=== PATIENT | female | born 1975 | race African-American/Black ===

== ENCOUNTER 2019-01-12 21:07 | Observation (INO) ==
[2019-01-12 23:11] LABS: Basophils % 0.2 % (0.0-0.8); Eosinophils # 0.1 10*3/uL (0.0-0.87); Eosinophils % 1.2 % (0.00-10.9); Hematocrit 39.5 VOL% (35.7-47.0); Hemoglobin 12.8 GM/DL (12.0-16.0); Immature Granulocytes % 0.4 %; Immature Granulocytes Absolute 0.03 #; Lymphocytes # 2.5 10*3/uL (1.4-4.0); Lymphocytes % 30.6 % (21.3-54.2); Mean Corpuscular HGB Conc 32.4 GM/DL (32-36); Mean Corpuscular Volume 82.1 FL (87-102); Mean Platelet Volume 10.1 FL (9.6-12.0); Monocytes % 8.7 % (1.7-12.7); Neutrophils % 58.9 % (38.7-73.9); Platelet Count 346 T/CUMM (130-400); Red Blood Count 4.81 MC/CUMM (3.8-5.5); Red Cell Distribution Width 13.4 % (9.3-17.3); White Blood Count 8.3 T/CUMM (4-12)
[2019-01-12 23:12] LABS: Apearance,Urine CLEAR (Clear); Bilirubin,Urine Negative (Negative); Blood, Urine Negative (Negative); Glucose,Urine (UA) Negative (Negative); Ketones,Urine Negative (Negative); Mucus,Urine Occasional /LPF (Occasional); Nitrite,Urine Negative (Negative); Protein,Urine Negative; RBC,Urine 1 /HPF (0-4); Urine Color Yellow (Yellow); Urine Specific Gravity 1.017 (1.001-1.035); Urine Urobilinogen < 2.0 EU/DL (0.2-1.0); WBC,Urine <1 /HPF (0-6)
[2019-01-12] MEDS ORDERED: KETOROLAC 30 MG/1 ML VIAL IM STA (23:23)
[2019-01-12] MEDS ORDERED: HYDROmorphone 2 MG/1 ML VIAL IM STA (23:36)
[2019-01-12] MEDS ORDERED: ONDANSETRON 4 MG/2 ML VIAL IM STA (23:36)
[2019-01-12] MEDS ORDERED: HYDROmorphone 2 MG/1 ML VIAL ONE (23:36)
[2019-01-12] MEDS ORDERED: ONDANSETRON 4 MG/2 ML VIAL ONE (23:36)
[2019-01-12 23:59] LABS: Alanine Aminotransferase 26 U/L (13-56); Albumin 3.3 G/DL (3.4-5.0); Alkaline Phosphatase 90 U/L (45-117); Aspartate Amino Transferase 13 U/L (0-37); Bilirubin,Total < 0.39 MG/DL (0.2-1.0); Blood Urea Nitrogen 7 MG/DL (7-18); Calcium 8.2 MG/DL (8.5-10.1); Glucose 105 MG/DL (74-106); Osmolality,Calculated 274.5 MOS/KG (273-304); Total Protein 7.3 G/DL (6.4-8.3)
[2019-01-13] MEDS ORDERED: PIPERACILLIN/TAZOBACTAM 3,375 MG in SODIUM CHLORIDE 0.9% 100 ML IV STA (00:59)
[2019-01-13] MEDS ORDERED: ACETAMINOPHEN 325 MG TABLET PO PRN (01:02)
[2019-01-13] MEDS: HYDROmorphone 2 MG/1 ML VIAL IV PRN ×4 (02:12→19:37)
[2019-01-13] MEDS: LACTATED RINGERS 1,000 ML IV SCH ×2 (04:03→15:32)
[2019-01-13] MEDS: PIPERACILLIN/TAZOBACTAM 3,375 MG in SODIUM CHLORIDE 0.9% 100 ML IV SCH ×2 (08:52→17:34)
[2019-01-13] MEDS ORDERED: PANTOPRAZOLE 40 MG TABLET PO SCH (09:00)
[2019-01-13] MEDS: ONDANSETRON 4 MG/2 ML VIAL IV PRN ×2 (09:50→20:43)
[2019-01-13] MEDS ORDERED: ALBUTEROL 2.5 MG/3 ML NEB RESP TX PRN ×3 (11:28→13:00)
[2019-01-13] MEDS ORDERED: ONDANSETRON 4 MG/2 ML VIAL IV ONE (12:31)
[2019-01-13] MEDS ORDERED: traZODone 50 MG TABLET PO SCH (21:00)
[2019-01-13] MEDS ORDERED: NON-FORMULARY MEDICATION (Omeprazole 40 MG) PO SCH (21:00)
[2019-01-13] MEDS: PANTOPRAZOLE 40 MG TABLET PO SCH (21:52)
[2019-01-13] MEDS: busPIRone 10 MG TABLET PO SCH (21:54)
[2019-01-14] MEDS: PIPERACILLIN/TAZOBACTAM 3,375 MG in SODIUM CHLORIDE 0.9% 100 ML IV SCH ×2 (01:38→09:49)
[2019-01-14] MEDS: LACTATED RINGERS 1,000 ML IV SCH ×3 (01:46→14:44)
[2019-01-14 04:54] LABS: Basophils % 0.3 % (0.0-0.8); Eosinophils # 0.1 10*3/uL (0.0-0.87); Eosinophils % 1.4 % (0.00-10.9); Hematocrit 37.4 VOL% (35.7-47.0); Hemoglobin 12.2 GM/DL (12.0-16.0); Immature Granulocytes % 0.3 %; Immature Granulocytes Absolute 0.02 #; Lymphocytes # 2.6 10*3/uL (1.4-4.0); Lymphocytes % 34.6 % (21.3-54.2); Mean Corpuscular HGB Conc 32.6 GM/DL (32-36); Mean Corpuscular Volume 82.6 FL (87-102); Mean Platelet Volume 9.9 FL (9.6-12.0); Monocytes % 8.8 % (1.7-12.7); Neutrophils % 54.6 % (38.7-73.9); Platelet Count 313 T/CUMM (130-400); Red Blood Count 4.53 MC/CUMM (3.8-5.5); Red Cell Distribution Width 13.5 % (9.3-17.3); White Blood Count 7.4 T/CUMM (4-12)
[2019-01-14 05:31] LABS: Alanine Aminotransferase 23 U/L (13-56); Albumin 3.1 G/DL (3.4-5.0); Alkaline Phosphatase 87 U/L (45-117); Aspartate Amino Transferase 11 U/L (0-37); Bilirubin,Total < 0.39 MG/DL (0.2-1.0); Blood Urea Nitrogen 11 MG/DL (7-18); Calcium 9.1 MG/DL (8.5-10.1); Glucose 115 MG/DL (74-106); Total Protein 6.7 G/DL (6.4-8.3)
[2019-01-14] MEDS ORDERED: LEVOTHYROXINE 125 MCG TABLET PO SCH (07:00)
[2019-01-14] MEDS ORDERED: METOPROLOL TARTRATE 25 MG TABLET PO SCH (09:00)
[2019-01-14] MEDS ORDERED: ASPIRIN EC 81 MG TABLET PO SCH (09:00)
[2019-01-14] MEDS: busPIRone 10 MG TABLET PO SCH (09:50)
[2019-01-14] MEDS: PANTOPRAZOLE 40 MG TABLET PO SCH (09:50)
[2019-01-14] MEDS ORDERED: KETOROLAC 10 MG TABLET PO PRN (12:28)
[2019-01-14 12:50] VITALS: BP 99/64
== END 2019-01-14 14:00 | disposition home or self-care (01) ==
LOC: N.ED 21:07 → N.EDINP 21:07 → N.3E 01-13 01:31
PROVIDERS: ADMIT Surgery; ATTEND Surgery

== ENCOUNTER 2019-07-17 10:23 | Observation (INO) ==
[2019-07-17] MEDS ORDERED: ASPIRIN 325 MG TABLET PO STA (11:15)
[2019-07-17] MEDS ORDERED: ALBUTEROL 2.5 MG/3 ML NEB RESP TX STA (11:15)
[2019-07-17 12:42] LABS: Basophils % 0.3 % (0.0-0.8); Eosinophils # 0.1 10*3/uL (0.0-0.87); Eosinophils % 1.9 % (0.00-10.9); Hematocrit 41.4 VOL% (35.7-47.0); Hemoglobin 13.3 GM/DL (12.0-16.0); Immature Granulocytes % 0.3 %; Immature Granulocytes Absolute 0.02 #; Lymphocytes # 2.2 10*3/uL (1.4-4.0); Mean Corpuscular HGB Conc 32.1 GM/DL (32-36); Mean Corpuscular Volume 84.1 FL (87-102); Mean Platelet Volume 9.3 FL (9.6-12.0); Monocytes % 8.8 % (1.7-12.7); Neutrophils % 53.7 % (38.7-73.9); Platelet Count 321 T/CUMM (130-400); Red Blood Count 4.92 MC/CUMM (3.8-5.5); Red Cell Distribution Width 13.9 % (9.3-17.3); White Blood Count 6.4 T/CUMM (4-12)
[2019-07-17 13:11] LABS: Alanine Aminotransferase 22 U/L (13-56); Albumin 3.2 G/DL (3.4-5.0); Alkaline Phosphatase 101 U/L (45-117); Aspartate Amino Transferase 13 U/L (0-37); Bilirubin,Total < 0.39 MG/DL (0.2-1.0); Blood Urea Nitrogen 9 MG/DL (7-18); Calcium 8.2 MG/DL (8.5-10.1); Estimated Glom Filtration Rate 145 ML/MIN; Glucose 77 MG/DL (74-106); Osmolality,Calculated 267.1 MOS/KG (273-304); Total Protein 7.5 G/DL (6.4-8.3)
[2019-07-17 13:58] LABS: Apearance,Urine CLEAR (Clear); Bilirubin,Urine Negative (Negative); Blood, Urine Negative (Negative); Glucose,Urine (UA) Negative (Negative); Ketones,Urine Negative (Negative); Mucus,Urine Occasional /LPF (Occasional); Nitrite,Urine Negative (Negative); Protein,Urine Negative; RBC,Urine 2 /HPF (0-4); Squamous Epithelial Cell,Urine Occasional /HPF (0-10); Urine Color Yellow (Yellow); Urine Specific Gravity 1.016 (1.001-1.035); Urine Urobilinogen < 2.0 EU/DL (0.2-1.0); WBC,Urine <1 /HPF (0-6)
[2019-07-17 14:03] LABS: Barbiturates Screen,Urine Negative (Negative); Benzodiazepines Screen,Urine Negative (Negative); Cannabinoid Screen,Urine Negative (Negative); Opiate Screen,Urine Negative (Negative); Phencyclidine Screen,Urine Negative (Negative)
[2019-07-17] MEDS ORDERED: ONDANSETRON 4 MG/2 ML VIAL IV PRN (15:16)
[2019-07-17] MEDS ORDERED: ENOXAPARIN 40 MG/0.4 ML SYRINGE SUBCUT SCH (15:30)
[2019-07-17 15:59] LABS: INR 0.9; PT Patient Result 10.3 SECS (9.6-12.2)
[2019-07-17] MEDS: MORPHINE 4 MG/1 ML VIAL IV PRN ×2 (16:05→20:38)
[2019-07-17] MEDS: ENOXAPARIN 40 MG/0.4 ML SYRINGE SUBCUT SCH (20:42)
[2019-07-17] MEDS: busPIRone 10 MG TABLET PO SCH (20:44)
[2019-07-18 05:49] LABS: Basophils % 0.3 % (0.0-0.8); Eosinophils # 0.2 10*3/uL (0.0-0.87); Eosinophils % 2.3 % (0.00-10.9); Hematocrit 37.9 VOL% (35.7-47.0); Hemoglobin 12.1 GM/DL (12.0-16.0); Immature Granulocytes % 0.3 %; Immature Granulocytes Absolute 0.02 #; Lymphocytes # 2.9 10*3/uL (1.4-4.0); Mean Corpuscular HGB Conc 31.9 GM/DL (32-36); Mean Corpuscular Volume 84.4 FL (87-102); Mean Platelet Volume 9.8 FL (9.6-12.0); Monocytes % 7.6 % (1.7-12.7); Neutrophils % 48.5 % (38.7-73.9); Platelet Count 318 T/CUMM (130-400); Red Blood Count 4.49 MC/CUMM (3.8-5.5); Red Cell Distribution Width 13.8 % (9.3-17.3)
[2019-07-18 06:11] LABS: Alanine Aminotransferase 18 U/L (13-56); Albumin 2.9 G/DL (3.4-5.0); Alkaline Phosphatase 94 U/L (45-117); Aspartate Amino Transferase 9 U/L (0-37); Bilirubin,Total < 0.39 MG/DL (0.2-1.0); Blood Urea Nitrogen 13 MG/DL (7-18); Calcium 7.9 MG/DL (8.5-10.1); Estimated Glom Filtration Rate 147 ML/MIN; Glucose 90 MG/DL (74-106); Total Protein 6.7 G/DL (6.4-8.3)
[2019-07-18] MEDS: LEVOTHYROXINE 125 MCG TABLET PO SCH (09:24)
[2019-07-18] MEDS: busPIRone 10 MG TABLET PO SCH ×2 (09:24→21:01)
[2019-07-18] MEDS: METOPROLOL TARTRATE 25 MG TABLET PO SCH (09:24)
[2019-07-18] MEDS: PANTOPRAZOLE 40 MG TABLET PO SCH (09:25)
[2019-07-18] MEDS ORDERED: METHOCARBAMOL 750 MG TABLET PO PRN (09:59)
[2019-07-18] MEDS ORDERED: MELOXICAM 7.5 MG TABLET PO SCH (12:00)
[2019-07-18] MEDS: ENOXAPARIN 40 MG/0.4 ML SYRINGE SUBCUT SCH (21:01)
[2019-07-18] MEDS: MORPHINE 4 MG/1 ML VIAL IV PRN (22:47)
[2019-07-19 05:33] LABS: Basophils % 0.1 % (0.0-0.8); Eosinophils # 0.2 10*3/uL (0.0-0.87); Eosinophils % 2.4 % (0.00-10.9); Hematocrit 37.5 VOL% (35.7-47.0); Hemoglobin 12.1 GM/DL (12.0-16.0); Immature Granulocytes % 0.3 %; Immature Granulocytes Absolute 0.02 #; Lymphocytes % 43.3 % (21.3-54.2); Mean Corpuscular HGB Conc 32.3 GM/DL (32-36); Mean Corpuscular Volume 83.9 FL (87-102); Mean Platelet Volume 9.5 FL (9.6-12.0); Monocytes % 7.2 % (1.7-12.7); Neutrophils % 46.7 % (38.7-73.9); Platelet Count 315 T/CUMM (130-400); Red Blood Count 4.47 MC/CUMM (3.8-5.5); Red Cell Distribution Width 13.6 % (9.3-17.3)
[2019-07-19 06:10] LABS: Albumin 2.9 G/DL (3.4-5.0); Bilirubin,Total 1.3 MG/DL (0.2-1.0); Calcium 8.2 MG/DL (8.5-10.1); Osmolality,Calculated 274.7 MOS/KG (273-304); Total Protein 6.7 G/DL (6.4-8.3)
[2019-07-19] MEDS: LEVOTHYROXINE 125 MCG TABLET PO SCH (06:42)
[2019-07-19] MEDS: METOPROLOL TARTRATE 25 MG TABLET PO SCH (08:07)
[2019-07-19] MEDS: busPIRone 10 MG TABLET PO SCH (08:39)
[2019-07-19] MEDS: PANTOPRAZOLE 40 MG TABLET PO SCH (08:39)
[2019-07-19] MEDS: MORPHINE 4 MG/1 ML VIAL IV PRN (08:44)
[2019-07-19] MEDS ORDERED: MELOXICAM 7.5 MG TABLET PO SCH (10:00)
[2019-07-19 13:33] VITALS: BP 97/57
== END 2019-07-19 11:59 | disposition home or self-care (01) ==
LOC: N.ED 10:23 → N.EDINP 10:23 → SUATTDRO 15:16 → N.4E 16:39
PROVIDERS: ADMIT Emergency Medicine; ATTEND Hospitalist